=== PATIENT | male | born 1960 | race Caucasian/White ===

== ENCOUNTER → 2017-06-09 | Outpatient (CLI) | payer MEDICARE, OTHER ==
[~2017-06-09] MED LIST: ALBU90OI INH; ALPR.5; ALPR1 PO; AMOX500 PO; ATEN50 PO; BACL10; BACPOLTO30 TOP; BUSP5 PO; CALCAVITD PO; CALCAVITDA PO; CIPR500 PO; CQ 10; CYCL10; CYCL10 PO; DIPATR PO; DULO60 PO; ESCI20; FISH1000 PO; HYDACE5; HYDACE5 PO; IBUP800; IBUP800 PO; LIRA0.6P SC; LISI10 PO; LISI5 PO; METF500 PO; METF850 PO; MULVITA; MULVITMIND PO; NAPR500 PO; OXYACE5T PO; OXYC10ER PO; OXYC1TAB11 PO; PENVK500 PO; PRED20 PO; PROP80; ROSU10TA; ROSU10TA PO; ROSU5 PO; RXOXYACE PO; TRAM50 PO; TRIHYD253A PO
== END | disposition home or self-care (01) ==
LOC: LAB 12:37
DX: N39.0 Urinary tract infection, site not specified (principal)
CPT/HCPCS: 87077; 87086; 87186

== ENCOUNTER → 2019-05-06 | Outpatient (CLI) | payer MEDICARE, OTHER | END | disposition home or self-care (01) | LOC: LAB EV 17:13 → LAB SHORT 17:13 | DX: L73.9 Follicular disorder, unspecified (principal) | CPT/HCPCS: 87070; 87075; 87077; 87147; 87186; 87205 ==

== ENCOUNTER → 2020-05-21 | Outpatient (CLI) | payer MEDICARE, OTHER | LOC: LAB SHORT 11:36 → LAB 11:36 | PROVIDERS: Physical Medicine & Rehabilitation | DX: M50.01 Cervical disc disorder with myelopathy, high cervical region (principal); M47.26 Other spondylosis with radiculopathy, lumbar region; Z79.891 Long term (current) use of opiate analgesic | CPT/HCPCS: G0480 ==

== ENCOUNTER → 2021-04-01 | Outpatient (CLI) | payer MEDICARE, OTHER | END | disposition home or self-care (01) | LOC: LAB SHORT 14:00 | DX: N18.9 Chronic kidney disease, unspecified (principal) | CPT/HCPCS: 82043 ==

== ENCOUNTER → 2021-11-24 | Outpatient (CLI) | payer MEDICARE, OTHER ==
[2021-11-24 14:42] LABS: Source, Urine Voided
[2021-11-24 15:21] LABS: Appearance, Urine Hazy (Clear); Bilirubin, Urine Neg (Neg); Blood, Urine 1+ (Neg); Color, Urine Yellow (P-Yellow); Glucose Qualitative, Urine Neg (Neg); Ketones, Urine Neg (Neg); Leukocyte Esterase, Urine 3+ (Neg); Nitrite, Urine Neg (Neg); Protein, Urine Neg (Neg); Urobilinogen, Urine NORM (Normal)
[2021-11-24 16:12] LABS: Bacteria Many /hpf; Red Blood Cells, Urine 0-2 /hpf (0-2); Squamous Epithelial Cells Rare /hpf (Few); White Blood Cells, Urine 50-100 /hpf (0-5)
== END | disposition home or self-care (01) ==
LOC: LAB SHORT 12:00
PROVIDERS: Family Medicine
DX: N39.0 Urinary tract infection, site not specified (principal)
CPT/HCPCS: 81001

== ENCOUNTER 2022-01-17 01:57 | Day surgery (SDC) | payer MEDICARE, OTHER | END 2022-01-17 23:32 | disposition home or self-care (01) | LOC: WOUND 01:57 | DX: L89.224 Pressure ulcer of left hip, stage 4 (principal); G82.20 Paraplegia, unspecified | CPT/HCPCS: A9270 ==

== ENCOUNTER 2022-01-24 02:45 | Day surgery (SDC) | payer MEDICARE, OTHER | END 2022-01-24 23:25 | disposition home or self-care (01) | LOC: WOUND 02:45 | DX: L89.224 Pressure ulcer of left hip, stage 4 (principal); L89.309 Pressure ulcer of unspecified buttock, unspecified stage; E11.622 Type 2 diabetes mellitus with other skin ulcer | CPT/HCPCS: A9270 ==

== ENCOUNTER 2022-01-31 02:47 | Day surgery (SDC) | payer MEDICARE, OTHER | END 2022-01-31 23:15 | disposition home or self-care (01) | LOC: WOUND 02:47 | DX: L89.224 Pressure ulcer of left hip, stage 4 (principal); L89.309 Pressure ulcer of unspecified buttock, unspecified stage; E11.622 Type 2 diabetes mellitus with other skin ulcer; L98.499 Non-pressure chronic ulcer of skin of other sites with unspecified severity; G82.20 Paraplegia, unspecified; Z99.3 Dependence on wheelchair | CPT/HCPCS: A9270 ==

== ENCOUNTER 2022-02-08 03:11 | Day surgery (SDC) | payer MEDICARE, OTHER | END 2022-02-08 23:32 | disposition home or self-care (01) | LOC: WOUND 03:11 | DX: L89.224 Pressure ulcer of left hip, stage 4 (principal); L89.309 Pressure ulcer of unspecified buttock, unspecified stage | CPT/HCPCS: A9270; G0463 ==

== ENCOUNTER 2022-02-14 02:35 | Day surgery (SDC) | payer MEDICARE, OTHER | END 2022-02-14 23:01 | disposition home or self-care (01) | LOC: WOUND 02:35 | DX: L89.224 Pressure ulcer of left hip, stage 4 (principal); G82.21 Paraplegia, complete; E11.9 Type 2 diabetes mellitus without complications | CPT/HCPCS: A9270 ==

== ENCOUNTER 2022-02-21 01:46 | Day surgery (SDC) | payer MEDICARE, OTHER | END 2022-02-21 23:37 | disposition home or self-care (01) | LOC: WOUND 01:46 | DX: L89.224 Pressure ulcer of left hip, stage 4 (principal); L89.309 Pressure ulcer of unspecified buttock, unspecified stage; E11.622 Type 2 diabetes mellitus with other skin ulcer; G82.21 Paraplegia, complete | CPT/HCPCS: A9270 ==

== ENCOUNTER 2022-03-01 03:14 | Day surgery (SDC) | payer MEDICARE, OTHER | END 2022-03-01 22:44 | disposition home or self-care (01) | LOC: WOUND 03:14 | DX: L89.224 Pressure ulcer of left hip, stage 4 (principal); G82.20 Paraplegia, unspecified; E11.9 Type 2 diabetes mellitus without complications | CPT/HCPCS: A9270 ==

== ENCOUNTER 2022-03-09 02:44 | Day surgery (SDC) | payer MEDICARE, OTHER | END 2022-03-09 23:04 | disposition home or self-care (01) | LOC: WOUND 02:44 | DX: L89.224 Pressure ulcer of left hip, stage 4 (principal); L89.309 Pressure ulcer of unspecified buttock, unspecified stage; E11.622 Type 2 diabetes mellitus with other skin ulcer; G82.21 Paraplegia, complete | CPT/HCPCS: A9270 ==

== ENCOUNTER 2022-03-16 06:06 | Day surgery (SDC) | payer MEDICARE, OTHER | END 2022-03-16 23:05 | disposition home or self-care (01) | LOC: WOUND 06:06 | DX: L89.224 Pressure ulcer of left hip, stage 4 (principal); E11.622 Type 2 diabetes mellitus with other skin ulcer; L89.309 Pressure ulcer of unspecified buttock, unspecified stage; G82.21 Paraplegia, complete; Z99.3 Dependence on wheelchair | CPT/HCPCS: A9270 ==

== ENCOUNTER 2022-03-23 02:00 | Day surgery (SDC) | payer MEDICARE, OTHER | END 2022-03-23 22:55 | disposition home or self-care (01) | LOC: WOUND 02:00 | DX: L89.224 Pressure ulcer of left hip, stage 4 (principal); G82.21 Paraplegia, complete; E11.622 Type 2 diabetes mellitus with other skin ulcer | CPT/HCPCS: G0463 ==

== ENCOUNTER 2022-03-30 01:13 | Day surgery (SDC) | payer MEDICARE, OTHER | END 2022-03-30 23:59 | disposition home or self-care (01) | LOC: WOUND 01:13 | DX: L89.224 Pressure ulcer of left hip, stage 4 (principal); L89.309 Pressure ulcer of unspecified buttock, unspecified stage; E11.622 Type 2 diabetes mellitus with other skin ulcer; G82.21 Paraplegia, complete | CPT/HCPCS: G0463 ==

== ENCOUNTER 2022-04-18 07:48 | Day surgery (SDC) | payer MEDICARE, OTHER | END 2022-04-18 22:54 | disposition home or self-care (01) | LOC: WOUND 07:48 | DX: L89.309 Pressure ulcer of unspecified buttock, unspecified stage (principal); E11.622 Type 2 diabetes mellitus with other skin ulcer; L89.224 Pressure ulcer of left hip, stage 4; G82.21 Paraplegia, complete ==

== ENCOUNTER 2022-04-20 04:07 | Day surgery (SDC) | payer MEDICARE, OTHER | END 2022-04-20 23:07 | disposition home or self-care (01) | LOC: WOUND 04:07 | DX: E11.622 Type 2 diabetes mellitus with other skin ulcer (principal); L89.224 Pressure ulcer of left hip, stage 4; L89.309 Pressure ulcer of unspecified buttock, unspecified stage; G82.21 Paraplegia, complete ==

== ENCOUNTER 2022-04-22 03:18 | Day surgery (SDC) | payer MEDICARE, OTHER | END 2022-04-22 23:08 | disposition home or self-care (01) | LOC: WOUND 03:18 | DX: L89.309 Pressure ulcer of unspecified buttock, unspecified stage (principal); E11.622 Type 2 diabetes mellitus with other skin ulcer; L89.224 Pressure ulcer of left hip, stage 4; G82.21 Paraplegia, complete | CPT/HCPCS: A9270 ==

== ENCOUNTER 2022-04-25 01:55 | Day surgery (SDC) | payer MEDICARE, OTHER | END 2022-04-25 23:08 | disposition home or self-care (01) | LOC: WOUND 01:55 | DX: L89.309 Pressure ulcer of unspecified buttock, unspecified stage (principal); E11.622 Type 2 diabetes mellitus with other skin ulcer; L89.224 Pressure ulcer of left hip, stage 4; G82.21 Paraplegia, complete ==

== ENCOUNTER 2022-04-27 05:29 | Day surgery (SDC) | payer MEDICARE, OTHER | END 2022-04-27 23:04 | disposition home or self-care (01) | LOC: WOUND 05:29 | DX: L89.224 Pressure ulcer of left hip, stage 4 (principal); L89.309 Pressure ulcer of unspecified buttock, unspecified stage; E11.622 Type 2 diabetes mellitus with other skin ulcer; G82.21 Paraplegia, complete ==

== ENCOUNTER 2022-04-29 02:39 | Day surgery (SDC) | payer MEDICARE, OTHER | END 2022-04-29 23:48 | disposition home or self-care (01) | LOC: WOUND 02:39 | DX: L89.224 Pressure ulcer of left hip, stage 4 (principal); L89.309 Pressure ulcer of unspecified buttock, unspecified stage; E11.622 Type 2 diabetes mellitus with other skin ulcer; G82.21 Paraplegia, complete ==

== ENCOUNTER 2022-05-02 08:58 | Day surgery (SDC) | payer MEDICARE, OTHER | END 2022-05-02 23:00 | disposition home or self-care (01) | LOC: WOUND 08:58 | DX: L89.309 Pressure ulcer of unspecified buttock, unspecified stage (principal); E11.9 Type 2 diabetes mellitus without complications; L89.224 Pressure ulcer of left hip, stage 4; G82.21 Paraplegia, complete; Z79.84 Long term (current) use of oral hypoglycemic drugs | CPT/HCPCS: G0463 ==

== ENCOUNTER 2022-05-04 01:43 | Day surgery (SDC) | payer MEDICARE, OTHER | END 2022-05-04 22:55 | disposition home or self-care (01) | LOC: WOUND 01:43 | DX: L89.224 Pressure ulcer of left hip, stage 4 (principal); L89.309 Pressure ulcer of unspecified buttock, unspecified stage; E11.622 Type 2 diabetes mellitus with other skin ulcer; G82.21 Paraplegia, complete | CPT/HCPCS: G0463 ==

== ENCOUNTER 2022-05-06 02:38 | Day surgery (SDC) | payer MEDICARE, OTHER | END 2022-05-06 22:49 | disposition home or self-care (01) | LOC: WOUND 02:38 | DX: L89.224 Pressure ulcer of left hip, stage 4 (principal); G82.21 Paraplegia, complete; L89.309 Pressure ulcer of unspecified buttock, unspecified stage | CPT/HCPCS: G0463 ==

== ENCOUNTER 2022-05-09 00:03 | Day surgery (SDC) | payer MEDICARE, OTHER | END 2022-05-09 23:00 | disposition home or self-care (01) | LOC: WOUND 00:03 | DX: L89.309 Pressure ulcer of unspecified buttock, unspecified stage (principal); E11.622 Type 2 diabetes mellitus with other skin ulcer; L89.224 Pressure ulcer of left hip, stage 4; G82.21 Paraplegia, complete | CPT/HCPCS: G0463 ==

== ENCOUNTER 2022-05-11 00:31 | Day surgery (SDC) | payer MEDICARE, OTHER | END 2022-05-11 23:38 | disposition home or self-care (01) | LOC: WOUND 00:31 | DX: L89.224 Pressure ulcer of left hip, stage 4 (principal); L89.309 Pressure ulcer of unspecified buttock, unspecified stage; E11.622 Type 2 diabetes mellitus with other skin ulcer; G82.21 Paraplegia, complete | CPT/HCPCS: G0463 ==

== ENCOUNTER 2022-05-13 01:53 | Day surgery (SDC) | payer MEDICARE, OTHER | END 2022-05-13 22:52 | disposition home or self-care (01) | LOC: WOUND | DX: L89.224 Pressure ulcer of left hip, stage 4 (principal); G82.21 Paraplegia, complete; E11.9 Type 2 diabetes mellitus without complications | CPT/HCPCS: G0463 ==

== ENCOUNTER 2022-05-20 01:26 | Day surgery (SDC) | payer MEDICARE, OTHER | END 2022-05-21 22:48 | disposition home or self-care (01) | LOC: WOUND 01:26 | DX: L89.224 Pressure ulcer of left hip, stage 4 (principal); G82.21 Paraplegia, complete | CPT/HCPCS: G0463 ==

== ENCOUNTER 2022-05-27 00:14 | Day surgery (SDC) | payer MEDICARE, OTHER | END 2022-05-27 23:52 | disposition home or self-care (01) | LOC: WOUND 00:14 | DX: E11.622 Type 2 diabetes mellitus with other skin ulcer (principal); L89.224 Pressure ulcer of left hip, stage 4; L89.309 Pressure ulcer of unspecified buttock, unspecified stage | CPT/HCPCS: G0463 ==

== ENCOUNTER 2022-06-03 01:52 | Day surgery (SDC) | payer MEDICARE, OTHER | END 2022-06-03 23:10 | disposition home or self-care (01) | LOC: WOUND 01:52 | DX: L89.224 Pressure ulcer of left hip, stage 4 (principal); G82.21 Paraplegia, complete; E11.9 Type 2 diabetes mellitus without complications | CPT/HCPCS: G0463 ==

== ENCOUNTER 2022-06-10 00:56 | Day surgery (SDC) | payer MEDICARE, OTHER | END 2022-06-10 23:15 | disposition home or self-care (01) | LOC: WOUND 00:56 | DX: L89.224 Pressure ulcer of left hip, stage 4 (principal); L89.309 Pressure ulcer of unspecified buttock, unspecified stage; E11.622 Type 2 diabetes mellitus with other skin ulcer; G82.21 Paraplegia, complete; Z99.3 Dependence on wheelchair | CPT/HCPCS: G0463 ==

== ENCOUNTER 2022-06-24 01:53 | Day surgery (SDC) | payer MEDICARE, OTHER | END 2022-06-24 23:07 | disposition home or self-care (01) | LOC: WOUND 01:53 | DX: L89.224 Pressure ulcer of left hip, stage 4 (principal); E11.622 Type 2 diabetes mellitus with other skin ulcer; G82.21 Paraplegia, complete; L89.309 Pressure ulcer of unspecified buttock, unspecified stage | CPT/HCPCS: G0463 ==

== ENCOUNTER 2022-07-15 02:02 | Day surgery (SDC) | payer MEDICARE, OTHER | END 2022-07-15 22:49 | disposition home or self-care (01) | LOC: WOUND 02:02 | DX: L89.224 Pressure ulcer of left hip, stage 4 (principal); L89.309 Pressure ulcer of unspecified buttock, unspecified stage; E11.9 Type 2 diabetes mellitus without complications; G82.21 Paraplegia, complete | CPT/HCPCS: G0463 ==

== ENCOUNTER 2022-07-22 00:31 | Day surgery (SDC) | payer MEDICARE, OTHER | END 2022-07-22 23:00 | disposition home or self-care (01) | LOC: WOUND 00:31 | DX: L89.224 Pressure ulcer of left hip, stage 4 (principal); L89.309 Pressure ulcer of unspecified buttock, unspecified stage; E11.622 Type 2 diabetes mellitus with other skin ulcer; G82.21 Paraplegia, complete; E11.37X1 Type 2 diabetes mellitus with diabetic macular edema, resolved following treatment, right eye; Z79.891 Long term (current) use of opiate analgesic | CPT/HCPCS: 36415; 80048; 83036; 85027; G0463 ==

== ENCOUNTER 2022-08-12 01:53 | Day surgery (SDC) | payer MEDICARE, OTHER | END 2022-08-12 22:59 | disposition home or self-care (01) | LOC: WOUND 01:53 | DX: L89.224 Pressure ulcer of left hip, stage 4 (principal); L89.309 Pressure ulcer of unspecified buttock, unspecified stage; E11.622 Type 2 diabetes mellitus with other skin ulcer; G82.21 Paraplegia, complete | CPT/HCPCS: G0463 ==

== ENCOUNTER 2022-08-26 02:53 | Day surgery (SDC) | payer MEDICARE, OTHER | END 2022-08-28 22:41 | disposition home or self-care (01) | LOC: WOUND 02:53 | DX: L89.224 Pressure ulcer of left hip, stage 4 (principal); L89.309 Pressure ulcer of unspecified buttock, unspecified stage; E11.622 Type 2 diabetes mellitus with other skin ulcer; G82.21 Paraplegia, complete | CPT/HCPCS: G0463 ==

== ENCOUNTER → 2022-09-16 | Day surgery (SDC) | payer MEDICARE, OTHER | LOC: WOUND 03:21 | DX: L89.224 Pressure ulcer of left hip, stage 4 (principal); L89.309 Pressure ulcer of unspecified buttock, unspecified stage; G82.21 Paraplegia, complete; E11.622 Type 2 diabetes mellitus with other skin ulcer | CPT/HCPCS: G0463 ==

== ENCOUNTER 2022-10-14 01:11 | Day surgery (SDC) | payer MEDICARE, OTHER | END 2022-10-14 22:41 | disposition home or self-care (01) | LOC: WOUND 01:11 | DX: L89.224 Pressure ulcer of left hip, stage 4 (principal); L89.309 Pressure ulcer of unspecified buttock, unspecified stage; E11.622 Type 2 diabetes mellitus with other skin ulcer; G82.21 Paraplegia, complete | CPT/HCPCS: G0463 ==

== ENCOUNTER 2022-10-28 05:20 | Day surgery (SDC) | payer MEDICARE, OTHER | END 2022-10-28 22:37 | disposition home or self-care (01) | LOC: WOUND 05:20 | DX: L89.224 Pressure ulcer of left hip, stage 4 (principal); E11.622 Type 2 diabetes mellitus with other skin ulcer; G82.21 Paraplegia, complete; L89.309 Pressure ulcer of unspecified buttock, unspecified stage; M25.511 Pain in right shoulder; J98.11 Atelectasis | CPT/HCPCS: 71046; G0463 ==

== ENCOUNTER 2022-11-11 01:33 | Day surgery (SDC) | payer MEDICARE, OTHER | END 2022-11-11 23:11 | disposition home or self-care (01) | LOC: WOUND 01:33 | DX: L89.224 Pressure ulcer of left hip, stage 4 (principal); L89.309 Pressure ulcer of unspecified buttock, unspecified stage; E11.622 Type 2 diabetes mellitus with other skin ulcer; G82.21 Paraplegia, complete; M54.2 Cervicalgia; E78.5 Hyperlipidemia, unspecified; E11.37X1 Type 2 diabetes mellitus with diabetic macular edema, resolved following treatment, right eye | CPT/HCPCS: 36415; 80048; 80061; 83036; G0463 ==

== ENCOUNTER 2022-11-25 02:24 | Day surgery (SDC) | payer MEDICARE, OTHER | END 2022-11-25 23:14 | disposition home or self-care (01) | LOC: WOUND 02:24 | DX: L89.224 Pressure ulcer of left hip, stage 4 (principal) | CPT/HCPCS: G0463 ==

== ENCOUNTER 2022-12-15 01:34 | Day surgery (SDC) | payer MEDICARE, OTHER | END 2022-12-15 22:39 | disposition home or self-care (01) | LOC: WOUND 01:34 | DX: L89.224 Pressure ulcer of left hip, stage 4 (principal); E11.622 Type 2 diabetes mellitus with other skin ulcer; L89.309 Pressure ulcer of unspecified buttock, unspecified stage; G82.21 Paraplegia, complete | CPT/HCPCS: G0463 ==

== ENCOUNTER → 2024-03-18 | Outpatient (CLI) | payer MEDICARE, OTHER ==
[2024-03-18 14:07] LABS: Source, Urine Voided
[2024-03-18 16:18] LABS: Appearance, Urine Cloudy (Clear); Bilirubin, Urine Neg (Neg); Blood, Urine 3+ (Neg); Glucose Qualitative, Urine Neg (Neg); Ketones, Urine Neg (Neg); Leukocyte Esterase, Urine 3+ (Neg); Nitrite, Urine Neg (Neg); Protein, Urine 3+ (Neg); Specific Gravity, Urine 1.005 (1.003-1.022); Urobilinogen, Urine NORM (Normal)
[2024-03-18 16:29] LABS: Color, Urine Pale Yellow (P-Yellow)
[2024-03-18 16:30] LABS: Bacteria Many /hpf; Squamous Epithelial Cells Rare /hpf (Few); White Blood Cells, Urine TNTC /hpf (0-5)
[2024-03-18 17:37] LABS: Creatinine, Urine Random 15.1 mg/dL (27.00-270.00); Microalb/Creat Ratio UR, Rand 605.298 mg/g (0.000-30.000); Microalbumin, Random Urine 91.4 mg/L (0.000-20.000)
== END | disposition home or self-care (01) ==
LOC: LAB 13:00 → LAB SHORT 13:00
PROVIDERS: Family Medicine
DX: E11.37X1 Type 2 diabetes mellitus with diabetic macular edema, resolved following treatment, right eye (principal); R82.90 Unspecified abnormal findings in urine
CPT/HCPCS: 81001; 82043; 82570; 87077; 87086; 87186

== ENCOUNTER → 2024-05-20 | Outpatient (CLI) | payer MEDICARE, OTHER ==
[2024-05-20 15:12] LABS: Creatinine Urine 22.7 mg/dL (27.00-270.00); Protein, Urine Quantitative 23.1 mg/dL (0.0-11.9)
== END | disposition home or self-care (01) ==
LOC: LAB 01:30 → LAB SHORT 01:30 → LAB FUT 04-19 13:05
PROVIDERS: Internal Medicine Nephrology
DX: N18.30 Chronic kidney disease, stage 3 unspecified (principal); D63.1 Anemia in chronic kidney disease; E29.1 Testicular hypofunction; N25.81 Secondary hyperparathyroidism of renal origin; D50.9 Iron deficiency anemia, unspecified; D51.8 Other vitamin B12 deficiency anemias; D52.8 Other folate deficiency anemias; R76.9 Abnormal immunological finding in serum, unspecified; R94.6 Abnormal results of thyroid function studies; R94.5 Abnormal results of liver function studies
CPT/HCPCS: 81050; 82043; 82570; 84156

== ENCOUNTER → 2024-05-21 | Outpatient (CLI) | payer MEDICARE, OTHER | END | disposition home or self-care (01) | LOC: LAB 17:59 → LAB SHORT 17:59 | DX: R82.90 Unspecified abnormal findings in urine (principal) | CPT/HCPCS: 87086 ==

== ENCOUNTER → 2024-12-16 | Outpatient (CLI) | payer MEDICARE, OTHER ==
[~2024-12-16] MED LIST changes: +CEFP200 PO
[2024-12-16 15:39] LABS: BASOPHILS ABSOLUTE AUTO 0.04 K/mm3 (0.00-0.23); BASOPHILS PERCENT AUTO 0 % (0-2); EOSINOPHILS ABSOLUTE AUTO 0.33 K/mm3 (0.00-0.68); EOSINOPHILS PERCENT AUTO 3 % (0-6); Hematocrit 44.5 % (37.0-53.0); Hemoglobin 14.6 g/dL (13.5-17.5); IMMATURE GRAN ABSOLUTE AUTO 0.02 K/mm3 (0.00-0.10); IMMATURE GRAN PERCENT AUTO 0 % (0-1); LYMPHOCYTES ABSOLUTE AUTO 3.14 K/mm3 (0.84-5.20); LYMPHOCYTES PERCENT AUTO 32 % (21-46); MONOCYTES ABSOLUTE AUTO 0.74 K/mm3 (0.16-1.47); MONOCYTES PERCENT AUTO 8 % (4-13); Mean Corpuscular HGB Conc 32.8 g/dL (31.5-36.5); Mean Corpuscular Volume 91 fL (80-100); NEUTROPHILS ABSOLUTE AUTO 5.58 K/mm3 (1.96-9.15); NEUTROPHILS PERCENT AUTO 57 % (41-73); NRBC ABSOLUTE 0.00 K/mm3 (0.00-0.02); NRBC Auto 0.0 /100 WBC (0.0-0.2); Platelet Count 302 K/mm3 (150-400); RDW Coefficient Variation 13.4 % (11.7-14.2); RDW Standard Deviation 44.4 fL (35.1-46.3)
[2024-12-16 16:01] LABS: Alanine Aminotransfer (ALT/SGP 27.0 U/L (12-78); Albumin, Blood 3.5 g/dL (3.4-5.0); Albumin/Globulin Ratio 0.8 (0.8-1.8); Anion Gap 6.0 mmol/L (3-11); Aspartate Aminotrans (AST/SGOT 26.0 U/L (12-37); Bilirubin, Total 0.6 mg/dL (0.1-1.0); Blood Urea Nitrogen 28.0 mg/dL (8-24); CO2, Blood 40.0 mmol/L (21-32); Calcium, Blood 9.1 mg/dL (8.5-10.1); Chloride, Blood 99.0 mmol/L (98-108); Creatinine, Blood 1.43 mg/dL (0.60-1.20); Globulin, Blood 4.4 g/dL (2.2-4.0); Glucose, Blood 105.0 mg/dL (70-99); Potassium, Blood 3.5 mmol/L (3.5-5.5); Sodium, Blood 141.0 mmol/L (136-145); Total Protein, Blood 7.9 g/dL (6.4-8.2)
== END ==
LOC: LAB SHORT 15:36 → LAB 15:36
PROVIDERS: Student in an Organized Health Care Education/Training Program
DX: R33.9 Retention of urine, unspecified (principal)
CPT/HCPCS: 80053; 85025

== ENCOUNTER 2024-12-23 05:50 | Emergency (ER) | payer MEDICARE, OTHER ==
[~2024-12-23] VITALS: Ht 180.3 cm; Wt 108.9 kg
[~2024-12-23 05:50] MED LIST changes: -CEFP200 PO
[2024-12-23 06:04] VITALS: BP 161/85
[2024-12-23] MEDS ORDERED: Lidocaine 2% Jelly Uro-Jet UR ONE (07:50)
[2024-12-23 08:21] LABS: Source, Urine Foley catheter
[2024-12-23 08:24] LABS: Bilirubin, Urine Neg (Neg); Color, Urine Red (P-Yellow); Glucose Qualitative, Urine Neg (Neg); Ketones, Urine Neg (Neg); Leukocyte Esterase, Urine 3+ (Neg); Protein, Urine 3+ (Neg); Specific Gravity, Urine 1.010 (1.003-1.022); Urobilinogen, Urine 1+ (Normal)
[2024-12-23 08:31] LABS: Red Blood Cells, Urine 50-100 /hpf (0-2)
[2024-12-23] MEDS ORDERED: CEFP200 PO (09:05)
== END 2024-12-23 09:09 | disposition home or self-care (01) ==
LOC: ER 05:50
PROVIDERS: Emergency Medicine
DX: N39.0 Urinary tract infection, site not specified (principal); Z46.6 Encounter for fitting and adjustment of urinary device; R31.9 Hematuria, unspecified; Z88.8 Allergy status to other drugs, medicaments and biological substances; Z91.040 Latex allergy status; Z79.84 Long term (current) use of oral hypoglycemic drugs; Z79.899 Other long term (current) drug therapy; I10 Essential (primary) hypertension
CPT/HCPCS: 51702; 81001; A9270